=== PATIENT | male | born 1985 | race Two or more races ===

== ENCOUNTER 2024-08-22 21:15 | Emergency (ER) | payer SELFPAY ==
[~2024-08-22] VITALS: Ht 170.2 cm; Wt 79.4 kg
[2024-08-22 21:57] LABS: BASOPHILS # (AUTO) 0.1 K/uL (0.0-0.2); BASOPHILS % (AUTO) 1.3 % (0.0-2.0); EOSINOPHILS # (AUTO) 0.1 K/uL (0.0-0.7); EOSINOPHILS % (AUTO) 1.5 % (0.0-6.0); HEMATOCRIT 42 % (39-51); HEMOGLOBIN 14.3 g/dL (13.5-17.5); LYMPHOCYTES # (AUTO) 1.8 K/uL (0.8-4.8); LYMPHOCYTES % (AUTO) 37.9 % (20.0-44.0); MEAN CORPUSCULAR HEMOGLOBIN 27 PG (26.0-33.0); MEAN CORPUSCULAR HGB CONC 34 g/dl (31.0-36.0); MEAN CORPUSCULAR VOLUME 81 fL (80-96); MONOCYTES # (AUTO) 0.2 K/uL (0.1-1.30); MONOCYTES % (AUTO) 4.2 % (2.0-12.0); NEUTROPHILS # (AUTO) 2.5 K/uL (1.8-8.9); NEUTROPHILS % (AUTO) 55.1 % (43.0-81.0); PLATELET COUNT (AUTO) 286 K/uL (150-450); RED BLOOD CELL COUNT(AUTO) 5.23 MIL/uL (4.5-6.0); RED CELL DISTRIBUTION WIDTH 14.7 % (11.5-15.0); WHITE BLOOD COUNT (AUTO) 4.6 K/uL (4.3-11.0)
[2024-08-22 22:01] LABS: APPEARANCE,URINE CLEAR (CLEAR); BILIRUBIN,URINE NEGATIVE (NEGATIVE); BLOOD, URINE NEGATIVE Ery/uL (NEGATIVE); COLOR,URINE YELLOW (YELLOW); KETONES,URINE NEGATIVE (NEGATIVE); LEUKOCYTE ESTERASE ,URINE NEGATIVE (NEGATIVE); NITRITE, URINE NEGATIVE (NEGATIVE); PROTEIN,URINE NEGATIVE (NEGATIVE); UGLUCOSE NEGATIVE (NEGATIVE); UROBILINOGEN,URINE 0.2 EU/dL (0.2)
[2024-08-22] MEDS ORDERED: ONDANSETRON HCL/PF 4 MG/2 ML VIAL ONE (22:03)
[2024-08-22 22:04] LABS: CALCIUM, SERUM 7.6 mg/dL (8.5-10.1); POTASSIUM 3.2 mmol/L (3.5-5.1)
[2024-08-22] MEDS: IV NS 0.9% 1,000 ML BAG IV ONE (22:05)
[2024-08-22] MEDS: ONDANSETRON HCL/PF 4 MG/2 ML VIAL IVP ONE (22:07)
[2024-08-22 22:10] LABS: BILIRUBIN,DIRECT 0.1 mg/dL (0.0-0.2); BILIRUBIN,TOTAL 0.3 mg/dL (0.2-1.0)
[2024-08-22 22:11] LABS: ALBUMIN 3.2 g/dL (3.4-5.0); TOTAL PROTEIN, SERUM 6.8 g/dL (6.4-8.2)
[2024-08-22 22:13] LABS: MAGNESIUM 1.5 mg/dL (1.8-2.4)
[2024-08-22 22:16] LABS: PHOSPHORUS 2.9 mg/dL (2.5-4.9)
[2024-08-22 22:17] LABS: AMPHETAMINE, URINE NEGATIVE (NEGATIVE); BARBITURATE, URINE NEGATIVE (NEGATIVE); BENZODIAZEPINE, URINE NEGATIVE (NEGATIVE); CANNABINOID, URINE NEGATIVE (NEGATIVE); COCCAINE, URINE NEGATIVE (NEGATIVE); OPIATE, URINE NEGATIVE (NEGATIVE); PHENCYCLIDINE SCREEN,URINE NEGATIVE (NEGATIVE)
[2024-08-22 23:10] VITALS: BP 130/88; TEMP 97.7; O2SAT 95
== END 2024-08-22 23:10 | disposition home or self-care (01) ==
LOC: ER 21:19
DX: F10.10 Alcohol abuse, uncomplicated (principal); I10 Essential (primary) hypertension; Z20.822 Contact with and (suspected) exposure to COVID-19; Z79.899 Other long term (current) drug therapy; Z60.2 Problems related to living alone
CPT/HCPCS: 99283; 96374; 96361; 85025; 80048; 83690; 80076; 83735; 84100; 81003; 36415; 87426; 80320; 80307; J2405; G0480

== ENCOUNTER 2024-08-24 06:49 | Emergency (ER) | payer SELFPAY ==
[~2024-08-24] VITALS: Ht 172.7 cm; Wt 78.9 kg
[2024-08-24] MEDS ORDERED: ONDANSETRON 4 MG TAB.RAPDIS SL ONE (07:30)
[2024-08-24] MEDS ORDERED: FAMOTIDINE (20 MG) 20 MG TABLET PO ONE (07:30)
[2024-08-24] MEDS ORDERED: MAG HYDROX/AL HYDROX/SIMETH 30 ML UDC ONE (07:39)
[2024-08-24] MEDS ORDERED: ONDANSETRON HCL/PF 4 MG/2 ML VIAL ONE (07:39)
[2024-08-24] MEDS ORDERED: BACI/NEOM/POLY B OINT PKT 1 UDPKT PACKET ONE (07:39)
[2024-08-24] MEDS ORDERED: TDAP [DIPH/PERTUSSIS/TET] 0.5 ML VIAL IM ONE (07:40)
[2024-08-24] MEDS ORDERED: FAMOTIDINE/PF INJ 20 MG/2 ML VIAL IV ONE (07:40)
[2024-08-24] MEDS: TDAP [DIPH/PERTUSSIS/TET] 0.5 ML VIAL IM ONE (07:40)
[2024-08-24] MEDS ORDERED: LIDOCAINE VISCOUS 2% UD 15 ML UDC ONE (07:40)
[2024-08-24 07:55] LABS: BASOPHILS # (AUTO) 0.1 K/uL (0.0-0.2); BASOPHILS % (AUTO) 0.7 % (0.0-2.0); EOSINOPHILS # (AUTO) 0.3 K/uL (0.0-0.7); EOSINOPHILS % (AUTO) 2.5 % (0.0-6.0); HEMATOCRIT 43 % (39-51); HEMOGLOBIN 14.1 g/dL (13.5-17.5); LYMPHOCYTES # (AUTO) 2.7 K/uL (0.8-4.8); MEAN CORPUSCULAR HEMOGLOBIN 27 PG (26.0-33.0); MEAN CORPUSCULAR HGB CONC 33 g/dl (31.0-36.0); MEAN CORPUSCULAR VOLUME 81 fL (80-96); MONOCYTES % (AUTO) 7.2 % (2.0-12.0); NEUTROPHILS # (AUTO) 9.5 K/uL (1.8-8.9); NEUTROPHILS % (AUTO) 69.6 % (43.0-81.0); PLATELET COUNT (AUTO) 274 K/uL (150-450); RED BLOOD CELL COUNT(AUTO) 5.31 MIL/uL (4.5-6.0); RED CELL DISTRIBUTION WIDTH 14.8 % (11.5-15.0); WHITE BLOOD COUNT (AUTO) 13.6 K/uL (4.3-11.0)
[2024-08-24] MEDS: FAMOTIDINE/PF INJ 20 MG/2 ML VIAL IV ONE (07:55)
[2024-08-24] MEDS: ONDANSETRON HCL/PF 4 MG/2 ML VIAL IVP ONE (07:55)
[2024-08-24] MEDS: MAG HYDROX/AL HYDROX/SIMETH 30 ML UDC PO ONE (07:55)
[2024-08-24] MEDS: LIDOCAINE VISCOUS 2% UD 15 ML UDC MM ONE (07:55)
[2024-08-24] MEDS: IV NS 0.9% 1,000 ML BAG IV ONE (07:55)
[2024-08-24] MEDS: BACI/NEOM/POLY B OINT PKT 1 UDPKT PACKET TP ONE (07:56)
[2024-08-24 08:11] LABS: ALBUMIN 3.6 g/dL (3.4-5.0); BILIRUBIN,DIRECT 0.1 mg/dL (0.0-0.2); BILIRUBIN,TOTAL 0.2 mg/dL (0.2-1.0); CREATININE 0.6 mg/dL (0.6-1.3); TOTAL PROTEIN, SERUM 7.2 g/dL (6.4-8.2)
[2024-08-24] MEDS ORDERED: ONDA4TAB5 PO (08:44)
[2024-08-24] MEDS ORDERED: CHLO25CA22 PO (08:44)
[2024-08-24] MEDS ORDERED: AMOX-430 PO (08:44)
[2024-08-24] MEDS ORDERED: FAMO-131 PO (08:44)
[2024-08-24] MEDS ORDERED: LORAZEPAM INJ 2 MG/ML VIAL ONE (08:59)
[2024-08-24] MEDS: LORAZEPAM INJ 2 MG/ML VIAL IV ONE (09:00)
[2024-08-24 09:09] VITALS: BP 142/88; TEMP 98.6; O2SAT 98
== END 2024-08-24 09:09 | disposition home or self-care (01) ==
LOC: ER 06:50
DX: S61.451A Open bite of right hand, initial encounter (principal); F10.129 Alcohol abuse with intoxication, unspecified; E87.6 Hypokalemia; K29.20 Alcoholic gastritis without bleeding; I10 Essential (primary) hypertension; Z20.3 Contact with and (suspected) exposure to rabies; Z87.19 Personal history of other diseases of the digestive system; Z60.2 Problems related to living alone; W54.0XXA Bitten by dog, initial encounter; Y93.89 Activity, other specified; Y92.89 Other specified places as the place of occurrence of the external cause; Y99.8 Other external cause status; Y90.8 Blood alcohol level of 240 mg/100 ml or more
CPT/HCPCS: 99284; 96374; 90471; 96361; 96375; 90715; 73130; 85025; 80048; 83690; 80076; 36415; 80320; J2060; J1308; J2405; J7030; A4223; G0480